=== PATIENT | male | born 1960 | race Caucasian/White ===

== ENCOUNTER 2017-08-29 01:31 | Inpatient (IN) | payer OTHER, MEDICARE ==
[~2017-08-29] VITALS: Ht 182.9 cm; Wt 148.8 kg
[~2017-08-29 01:31] MED LIST: AMLODIPINE BESYL5 M1 PO; KLONOPIN1 M1 PO; LOVENOX40 MG/0.1 SC; OXYCONTIN30 M1 PO; PANTOPRAZOLE SO40 M1 PO; PROPRANOLOL HCL40 M1 PO; VICTOZA 2-0.6 MG/0.1 SC; [UNRECOGNIZED DRUG - OTHER] PO
--- NOTE | 2017-08-29 14:03 | Admission Core Measures ---
Acute Coronary Syndrome (CM) ACS Core Measures Acute Coronary Syndrome Diagnosis No Congestive Heart Failure (NEW) CHF Core Measures Congestive Heart Failure Diagnosis No Cerebrovascular Accident (NEW) CVA Core Measures CVA/TIA Diagnosis No Venous Thromboembolism VTE Core Beverly (View Protocol) VTE Risk Factors Surgery No Mechanical VTE Prophylaxis d/t N/A MechProphylax Ordered No VTE Pharm Prophylaxis d/t NA PharmProphylax ordered Problem List As ranked by this Provider includes Assessment & Plan 1. Unilateral primary osteoarthritis, right hip HOME MEDS Home Med List Amlodipine Besylate 5 MG TABLET 1 TAB PO DAILY BP (Reported) Clonazepam (Klonopin) 1 MG TABLET 1 TAB PO DAILY UNKNOWN (Reported) Enoxaparin Sodium (Lovenox) 40 MG/0.4 ML SYRINGE 0.4 ML SC DAILY BLOOD THINNER (Reported) [GLZXAMBI] MG 1 TAB PO DAILY DIABETES (Reported) Liraglutide (Victoza 2-Gianni) 0.6 MG/0.1 ML (18 MG/3 ML) PEN.INJCTR 1.2 MG SC DAILY DIABETES (Reported) Oxycodone HCl (Oxycontin) 30 MG TAB.ER.12H 1 TAB PO TID PAIN (Reported) Pantoprazole Sodium 40 MG TABLET.DR 1 TAB PO BID REFLUX (Reported) Propranolol HCl 40 MG TABLET 1 TAB PO BID ESOPHOGEAL VARICES (Reported)
[2017-08-29] MEDS ORDERED: ELIQUIS5 M1 PO (14:08)
[2017-08-29] MEDS ORDERED: MS CONTIN30 M1 PO (14:08)
[2017-08-29] MEDS ORDERED: COLACE100 M1 PO (14:08)
[2017-08-29] MEDS ORDERED: MIRALAX17 G1 PO (14:08)
[2017-08-29] MEDS ORDERED: ELIQUIS2.5 M1 PO (14:08)
[2017-08-29] MEDS ORDERED: DILAUDID2 M1 PO (14:09)
--- NOTE | 2017-08-29 14:13 | Patient Discharge Instructions ---
Discharge Instructions General Discharge Information You were seen/treated for: Right hip pain related to unilateral primary osteoarthritis You had these procedures: Right total hip replacement Watch for these problems: Increasing pain despite the use of pain medication Increasing redness, warmth or swelling Drainage of any type from incision Inability to bear weight on operative leg Persistent nausea and vomiting Fever greater than 101.5 degrees Do not soak the wound: Yes No bath, but you may shower: Yes Other wound care: Please keep wound clean and dry. No ointments or lotions of any type on or near incision at any time. No exceptions. Your dressing will be changed by your nurse on the second day after your surgery. Daily dry dressing changes are recommended each day thereafter. Do not soak your wound in a bath at any time until otherwise indicated by your surgeon. You may shower, please dry wound immediately after shower with a clean towel. Special Instructions: Eliquis Please take 2.5 mg tablets twice a day for the first week after surgery. You have been given an rx for 14 tablets which will cover you for 7 days. After 7 days, increase your dosage to 5 mg twice a day. You will do that for 2 additional weeks. You have been given an rx for 28 tablets which will cover your for 14 days. 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 Diet Continue normal diet: Yes Recommended Diet: Diabetic Activity Full Activity/No Limits: No Activity Self Limited: Yes Pounds, do NOT lift more than: 10 Acute Coronary Syndrome Inclusion Criteria At DC or during hospital stay patient has or had the following: ACS DIAGNOSIS No Discharge Core Measures Meds if any: Prescribed or Continued at Discharge Meds if any: NOT Prescribed or Continued at Discharge Congestive Heart Failure Inclusion Criteria At DC or during hospital stay patient has or had the following: CHF DIAGNOSIS No Discharge Core Measures Meds if any: Prescribed or Continued at Discharge Meds if any: NOT Prescribed or Continued at Discharge Cerebrovascular accident Inclusion Criteria At DC or during hospital stay patient has or had the following: CVA/TIA Diagnosis No Discharge Core Measures Meds if any: Prescribed or Continued at Discharge Meds if any: NOT Prescribed or Continued at Discharge Venous thromboembolism Inclusion Criteria VTE Diagnosis No VTE Type NONE VTE Confirmed by (Test) NONE Discharge Core Measures - Per Current guidelines, there needs to be overlap - treatment for the first 5 days of Warfarin therapy. - If discharged on Warfarin prior to 5 days of - overlap therapy, the patient will need to be - assessed for post discharge needs including - *Post discharge parental anticoagulation - *Warfarin and/or parental anticoagulation education - *Follow up date to check INR post discharge At least 5 days overlap therapy as Inpatient No Meds if any: Prescribed or Continued at Discharge Note: Overlap Therapy is Warfarin and Anticoagulant Meds if any: NOT Prescribed or Continued at Discharge
--- NOTE | 2017-08-29 14:15 | Surgical Discharge Summary ---
Visit Information Visit Dates Admission Date: 08/29/17 Discharge Date: 09/01/2017 History of Present Illness Chief Complaint: Right hip pain related to unilateral primary osteoarthritis Medical History Isolation History: Standard Surgical History Pertinent Surgical History: non-contributory Review of Systems: See H&P Hospital Course Course Attending Physician: Jules Jones MD Primary Care Physician: Crispin Crabtree MD Hospital Course: Patient was admitted to the hospital for an elective total joint replacement. The procedure was tolerated well and patient was transferred to a general surgical floor. Diet was advanced and tolerated, and the patient voided spontaneously. The patient was evaluated and treated by physical therapy. At the time of hospital discharge, the vital signs were stable, neurovascular status was intact, and pain was controlled with the use of oral pain medications. It was noted that he had an ulcer on his buttock whcih was evaluated and did not look infected but was inflamed and appeared to be caused by pressure. He was placed on augmentin due to the possibility of infection and his recent hip surgery. He was instructed to keep pressure off of the buttock. No further dressings etc were deemed necessary. Allergies: Coded Allergies: No Known Allergies (08/26/17) Disposition Summary Disposition Principal Diagnosis: Right hip unilateral primary osteoarthritis Additional Diagnosis: None Discharge Disposition: home health services Discharge Instructions General Discharge Information Code Status: Full Code Patient's Diet: Diabetic, advance as tolerated Patient's Activity: WBAT Follow-Up Instructions/Appts: Follow up with Dr. Jones in 6 weeks from date of surgery. Please call his office to arrange and/or confirm this appointment. Medications at Discharge Discharge Medications: Stop taking the following medications: Oxycodone HCl (Oxycontin) 30 MG TAB.ER.12H ORAL THREE TIMES DAILY Enoxaparin Sodium (Lovenox) 40 MG/0.4 ML SYRINGE Inject into fatty tissue DAILY Continue taking these medications: Amlodipine Besylate (Amlodipine Besylate) 5 MG TABLET 1 Tablet ORAL DAILY Comments: Last Taken: 09/01/17 Time: 1054AM Pantoprazole Sodium (Pantoprazole Sodium) 40 MG TABLET.DR 1 Tablet ORAL TWICE DAILY Comments: PRILOSEC GIVEN IN HOSPITAL Last Taken: 09/01/17 Time: 0711AM Propranolol HCl (Propranolol HCl) 40 MG TABLET 1 Tablet ORAL TWICE DAILY Comments: Last Taken: 09/01/17 Time: 1054 Clonazepam (Klonopin) 1 MG TABLET 1 Tablet ORAL DAILY Comments: Last Taken: 09/01/17 Time: 1102AM [GLZXAMBI] MG 1 Tablet ORAL DAILY Instructions: DOSE PER PT IS 10/5MG Comments: NOT GIVEN IN HOSPITAL Liraglutide (Victoza 2-Gianni) 0.6 MG/0.1 ML (18 MG/3 ML) PEN.INJCTR 1.2 Milligram Inject into fatty tissue DAILY Comments: NOT GIVEN IN HOSPITAL Start taking the following new medications: Hydromorphone HCl (Dilaudid) 2 MG TABLET 2-4 Tablet ORAL EVERY 4-6 HOURS NEEDED as needed for PAIN Qty = 36 No Refills Comments: Last Taken: 09/01/17 Time: 1102AM Apixaban (Eliquis) 2.5 MG TABLET 1 Tablet ORAL TWICE DAILY Qty = 14 No Refills Instructions: TAKE ONLY 2.5 MG TWICE DAILY FOR 7 DAYS BEGINNING THE FIRST DAY AFTER YOUR SURGERY Comments: Last Taken: 09/01/17 Time: 1104AM Apixaban (Eliquis) 5 MG TABLET 1 Tablet ORAL TWICE DAILY Qty = 28 No Refills Instructions: BEGIN THIS DOSE AFTER YOU COMPLETE YOUR ONE WEEK COURSE OF 2.5 MG TWICE A DAY Docusate Sodium (Colace) 100 MG CAPSULE 1 Capsule ORAL TWICE DAILY Qty = 14 No Refills Instructions: DISCONTINUE USE IF YOU DEVELOP LOOSE STOOL OR DIARRHEA Comments: Last Taken: 09/01/17 Time: 1054AM Polyethylene Glycol 3350 (Miralax) 17 GRAM POWD.PACK 1 Packet ORAL DAILY Qty = 7 No Refills Instructions: dissolve in water, DISCONTINUE USE IF YOU DEVELOP LOOSE STOOL OR DIARRHEA Comments: Last Taken: 09/01/17 Time: 1054AM Morphine Sulfate (Ms Contin) 30 MG TABLET.ER 1 Tablet ORAL TWICE DAILY Qty = 6 No Refills Comments: Last Taken: 09/01/17 Time: 1102AM Amoxicillin/Potassium Clav (Augmentin 875-125 Tablet) 875 MG-125 MG TABLET 1 Tablet ORAL TWICE DAILY Qty = 20 No Refills Comments: NOT GIVEN IN HOSPITAL
--- NOTE | 2017-08-29 15:28 | RADIOLOGY REPORT ---
EXAMINATION: XR HIP, RIGHT CLINICAL INFORMATION: Status post hip replacement. COMPARISON: None TECHNIQUE: Two views of the right hip. FINDINGS: Surgical drain in the soft tissue. Surgical skin clips over the right lateral soft tissues of the hip. The orthopedic components of the total right hip replacement in position. No fracture and no dislocation. IMPRESSION: Status post right hip replacement.
--- NOTE | 2017-08-29 15:53 | Operative Report ---
Operative/Inv Procedure Report Surgery Date: 08/29/17 Name of Procedure: Right total hip replacement Pre-Operative Diagnosis: Primary right hip DJD Post-Operative Diagnosis: Same Estimated Blood Loss: 500 Surgeon/System Programmer: Karen HUBER,Jules García Anesthesia: general endotracheal tube Operative/Procedure Note Note: Description of Procedure: The patient was taken to the operating room and positively identified. After induction of general anesthesia and administration of appropriate pre-operative antibiotics, the patient was positioned supine on the operating room table and all bony prominences were well padded. After performing a surgical timeout, the right lower extremity was prepped and draped in the usual sterile fashion. A direct anterior approach was made to the right hip. The incision was carried sharply through superficial soft tissues to the level of the fascia. Meticulous hemostasis was maintained with Bovie electocautery. The fascia over the tensor fascia shawnee muscle was opened sharply and the interval between the TFL and the sartorius was entered bluntly taking care to stay lateral to the lateral femoral cutaneous nerve. Retractors were placed around the femoral neck and the pericapsular fat was identified. The ascending branches of the lateral femoral circumflex vessels were identified and carefully coagulated. The pericapsular fat and anterior capsule were then resected. A napkin ring osteotomy was performed and the femoral head was removed without difficulty. Attention was then turned to the acetabulum. After appropriate placement of retractors, the acetabulum was exposed. Soft tissue was cleaned from the acetabular margin and notch. Overhanging osteophytes were removed and the teardrop was exposed. The acetabulum was then sequentially reamed to accept a 62 mm Minerva Tritanium hemispherical cluster shell. This was impacted into place in the appropriate position. 2 screws were used for supplemental fixation. The cup was then fit with a 36 mm Trident X3 zero degree polyethylene insert. Attention was then turned to the femur. After performing the appropriate ligament releases, the proximal femur was exposed. It was then sequentially broached to accept a size 8 Minerva Accolade II stem. This was trialed for leg length and stability. The trial component was removed and the final component was impacted into place. The trunnion was carefully cleaned and fit with a 36 mm, +2.5 Biolox delta ceramic femoral head. The hip was reduced and put through a full range of motion and found to be stable. The articular space was then irrigated with sterile saline. The periarticular soft tissues were infilitrated with Marcaine. The fascial layer was closed with interrupted #1 vicryl suture and the skin was re-approximated with interrupted 2 -0 vicryl. The skin was closed with a running 3-0 V-Lock suture. Steri-strips and a sterile dressing were applied. The patient was awakened and taken to the recovery room in satisfactory condition.
--- NOTE | 2017-08-29 17:46 | PN- Orthopedic ---
Subjective Subjective: POSTOP CHECK just arrived to floor from pacu. sleepy. hamm placed in pacu for retention. denies pain. no n/v/cp/sob. no oob. no po intake yet Objective Vital Signs and I&Os SEE EMR Physical Exam: gen- nad card-s1s2 rrr pulm-ctab abd- obese soft nt ext- R hip dressed-cdi, nontender. calves soft nt bl, alps on. +dorsi/ plantarflexion bl. feet warm, palp dp. gross sensation intact bl Assessment/Plan Assessment/Plan A- POD0 sp R BARBARA with urinary retention in pacu, hamm placed, otherwise stable P- hamm in place, dc in am prn pain meds home meds ada diet as tolerated fs, riss home meds eliquis 2.5 bid wbat, ot, ambulate dc planning Core Measures Venous Thromboembolism VTE Risk Factors Surgery No Mechanical VTE Prophylaxis d/t N/A MechProphylax Ordered No VTE Pharm Prophylaxis d/t NA PharmProphylax ordered
[2017-08-29 18:07] VITALS: BP 132/90
[2017-08-29 22:37] VITALS: BP 128/60
[2017-08-30] VITALS (7 sets, daily range): BP systolic 110–122; BP diastolic 58–60
[2017-08-30 08:05] LABS: ABSOLUTE BASOPHIL COUNT 0 /CUMM (0.0-0.2); ABSOLUTE EOSINOPHIL COUNT 0.1 /CUMM (0.0-0.7); ABSOLUTE GRANULOCYTE CT 5.4 /CUMM (1.4-6.5); ABSOLUTE LYMPH COUNT 0.7 /CUMM (1.2-3.4); ABSOLUTE MONOCYTE COUNT 0.4 /CUMM (0.10-0.60); BASOPHIL % 0.1 % (0.0-2.0); EOSINOPHIL % 1.2 % (0-5); GRANULOCYTE % 83.1 % (42.2-75.2); HEMATOCRIT 30.9 % (42-52); MEAN CORPUSCULAR HGB 31.1 PG (27.0-31.0); MEAN CORPUSCULAR HGB CONC 34.6 G/DL (33.0-37.0); MEAN CORPUSCULAR VOLUME 89.8 FL (80.0-94.0); MEAN PLATELET VOLUME 9.5 FL (7.4-10.4); RBC DISTRIBUTION WIDTH 14.5 % (11.5-14.5); RED BLOOD CELL CT 3.44 /CUMM (4.70-6.10)
[2017-08-30 09:40] LABS: WHITE BLOOD CELL COUNT 6.5 /CUMM (4.8-10.8)
[2017-08-30 09:41] LABS: PLATELET COUNT 70 /CUMM (130-400)
--- NOTE | 2017-08-30 09:44 | PN- Orthopedic ---
Subjective Subjective: No acute overnight events reported. Pain control an issue. Denies chest pain, shortness of breath and difficulty breathing. Denies nausea and vomitting. Has yet to ambulate. Carvajal catheter dc'd this am. Objective Vital Signs and I&Os Vital Signs Date Time Temp Pulse Resp B/P B/P Pulse O2 O2 Flow FiO2 Mean Ox Delivery Rate 03/ 0902 95 112/60 03/ 0902 95 112/60 03/06 0557 99.1 97 20 120/60 92 Room Air / 0200 99.7 100 20 116/60 93 CPAP 03/ 0000 CPAP 03/ 0000 98.4 82 20 110/60 94 CPAP / 2237 97.6 96 19 128/60 96 Room Air / 2131 96 128/60 03/05 1807 97.8 78 20 132/90 100 Nasal 2.0L Cannula Intake & Output 08/30 1600 / 0800 03/06 0000 03/ 1600 / 0800 03/ 0000 Intake Total 1370 585 Output Total 750 Balance 620 585 Intake, IV 650 345 Intake, Oral 720 240 Number 0 0 Bowel Movements Output, 300 Drainage Output, Urine 450 Patient 323 lb 310 lb Weight Weight Bed scale Reported by Patient Measurement Method Physical Exam: General: Alert and oriented x3, no acute distress Cardiac: RRR, s1s2 Pulm: CTA bilaterally ABD: non-tender, non-distended Extremities: Moves all extremities, distal sensation grossly intact. Skin warm and well perfused. DP pulses palpable bialterally. Bialteral calves soft and non-tender. Surgical site: Right hip: Dressing dry and intact. Sanguinous drainage in hemovac. Thigh compartment soft. Assessment/Plan Assessment/Plan This is a 56 year old male with multiple comorbidities including: Diabetes, hypertension, portal hypertension, cirrhosis, thrombocytopenia, esophageal varicies, and morbid obesity. He is POD 1 s/p R THR -MS Contin 30 to be given today -DC iv fluids -OOB, wbat -Drain, will pull this afternoon -Eliquis to start today: 2.5 bid x1 week, the 5.0 bid x2 weeks, then follow up with children counselor regarding further treatment -Diet as tolerated -Bowel regimen to include colace and miralax Will discuss plan of care with Dr Jones Core Measures Venous Thromboembolism VTE Risk Factors Surgery No Mechanical VTE Prophylaxis d/t N/A MechProphylax Ordered No VTE Pharm Prophylaxis d/t NA PharmProphylax ordered
[2017-08-31 06:26] VITALS: BP 120/68
--- NOTE | 2017-08-31 07:01 | PN- Orthopedic ---
Subjective Subjective: POD#2 S/P RIGHT BARBARA NO MAJOR ISSUES OVERNIGHT DENEIS CP,SOB,NO N+V WITH DIET SLOW WITH PT PAIN CONTROLLED PO PAIN MEDS CONCERNED ABOUT GOING HOME BECASUE OF MANY STAIRS AT HOME Objective Vital Signs and I&Os Vital Signs Date Time Temp Pulse Resp B/P B/P Pulse O2 O2 Flow FiO2 Mean Ox Delivery Rate / 0626 98.7 81 20 120/68 93 Room Air 03/ 2154 99.2 85 18 110/60 95 Room Air 03/06 2109 85 110/60 03/06 1830 98.1 85 18 118/60 94 Room Air 03/ 1513 98.9 85 20 122/60 93 Room Air 03/06 0957 97.7 92 16 122/58 98 Room Air 03/06 0902 95 112/60 03/06 0902 95 112/60 Intake & Output 03/07 0800 03/07 0000 03/06 1600 03/06 0800 03/06 0000 03/05 1600 Intake Total 520 494 1578 585 Output Total 425 600 600 750 Balance -425 370 25 620 585 Intake, IV 20 75 650 345 Intake, Oral 950 550 720 240 Number 0 0 0 Bowel Movements Output, 100 250 300 Drainage Output, Urine 425 500 350 450 Patient 324 lb 323 lb 310 lb Weight Weight Bed scale Reported by Patient Measurement Method Physical Exam: CV: RRR LUNGS: CLEAR ABD: SOFT, +BS EXT: DRSG CHANGED, WOUND C/D/I NO CALF TENDERNESS BILAT DISTAL CMS INTACT Assessment/Plan Assessment/Plan ORTHO STABLE STILL NEEDS TO DO STAIRS WITH PT PLAN ELIQUIS FOR DVT PROPHYLAXIS CONT OOB WITH PT TITRATE PAIN MEDS HOME V. STR - WILL DISCUSS W/PT&CM Core Measures Venous Thromboembolism VTE Risk Factors Surgery No Mechanical VTE Prophylaxis d/t N/A MechProphylax Ordered No VTE Pharm Prophylaxis d/t NA PharmProphylax ordered
[2017-08-31 14:18] VITALS: BP 124/52
[2017-08-31 22:03] VITALS: BP 112/70
[2017-09-01 07:01] VITALS: BP 120/60
[2017-09-01] MEDS ORDERED: AUGMENTIN 875-1 EACH PO (10:40)
--- NOTE | 2017-09-01 10:41 | PN- Orthopedic ---
Subjective Subjective: Patient feeling better today, his pain is well controlled, he has been up and ambulatory and is cleared physical therapy. He denies any fever or flulike illness. He states he feels comfortable being discharged home, he has family that it will help take care of him and his fingers has been arranged. Patient also has a trace amount of thin bloody draining from his left lower medial buttock region. He states that he has history of abscess in this area that are recurrent. One has recently healed. He denies any trauma to the area. He thinks it is from sitting for too long on it after surgery. He has no pain or purulent discharge from it. Objective Vital Signs and I&Os Vital Signs Date Time Temp Pulse Resp B/P B/P Pulse O2 O2 Flow FiO2 Mean Ox Delivery Rate 09/01 1226 98.1 69 20 116/70 93 Room Air 09/01 1055 76 124/64 09/01 1054 76 114/64 09/01 0701 98.3 74 20 120/60 97 03/08 0000 CPAP 08/31 2210 80 112/70 08/31 2203 98.3 80 19 112/70 93 Room Air Intake & Output 09/01 1600 08 0800 /08 0000 / 1600 08/31 0800 / 0000 Intake Total 720 680 720 680 970 Output Total 425 650 750 700 625 600 Balance 295 30 -750 20 55 370 Intake, IV 20 Intake, Oral 720 680 720 680 950 Output, 100 Drainage Output, Urine 425 650 750 700 625 500 Patient 328 lb 324 lb Weight Physical Exam: Well-developed well-nourished no apparent distress. HEENT: Atraumatic, extraocular motion intact Neck: Supple, no lymphadenopathy Respiratory: No respiratory distress Extremities: No edema RIGHT lower extremity hip dressing in place, Dressing has mild amount of serosanguineous drainage at the proximal incision site and at the revealed drain site which has healed. Dry sterile dressing was applied Incision without erythema Mild thigh swelling No signs of infection. No shortening or rotation Hip range of motion is limited and without unexpected pain Neurovascularly intact distally Bilateral calves are supple, nontender. Neuro: Alert and oriented x3 Psych: Mood affect normal, normal memory normal judgment. Skin: Warm and dry, no rash on exposed skin Patient's left buttock region with a 1 x 1 cm area of slightly opened scab and what appears to be previous abscess site. There is trace thin serous blood noted on the pad which she is sitting. There is no active bleeding. There is no tenderness, swelling, induration, erythema, discharge or pain with palpation of the area. There does not appear to be any tracking. There is multiple scarring of bilateral gluteal regions secondary to previous abscesses Assessment/Plan Assessment/Plan Postop day #3 status post right total arthroplasty anterior approach. Pain medication as needed. Out of bed Physical therapy, weightbearing as tolerated Regular diet Daily dressing change [facility] services Eliquis 2.5 mg twice a day for DVT prophylaxis for 1 week and then switch to 5 mg twice a day. Continue pain regimen Right buttock wound is superficial and from old scarring, no active infection however given his history of previous infections and recent total joint replacement, he will be placed on Augmentin, 875 twice a day 10 days. He is asked to try to stay off this and watch for any signs of infection which were discussed with him. Patient is stable for discharge home today discussed with Dr. Jones Core Measures Venous Thromboembolism VTE Risk Factors Surgery No Mechanical VTE Prophylaxis d/t N/A MechProphylax Ordered No VTE Pharm Prophylaxis d/t NA PharmProphylax ordered
[2017-09-01] MEDS ORDERED: DILAUDID2 M1 PO (11:15)
[2017-09-01 12:26] VITALS: BP 116/70
== END 2017-09-01 13:45 | disposition home health service (06) | DRG 470 ==
LOC: SDA 01:31 → ENRESERV 16:42 → ENTRNSPT 17:24 → 2NB 17:42 → CMPTRNSPT 18:11 → ENPENDDIS 09-01 13:33 → ENTRNSPT 09-01 13:33 → EDTRNSPTSTS 09-01 13:36 → 2NB 09-01 13:45 → CMPTRNSPT 09-01 14:10
PROVIDERS: Nurse Practitioner
PROC: 0SR904Z Replacement of Right Hip Joint with Ceramic on Polyethylene Synthetic Substitute, Open Approach (ICD-10-PCS; principal; 2017-08-29)
DX: M16.11 Unilateral primary osteoarthritis, right hip (principal); L89.309 Pressure ulcer of unspecified buttock, unspecified stage; D69.6 Thrombocytopenia, unspecified; I85.10 Secondary esophageal varices without bleeding; E66.01 Morbid (severe) obesity due to excess calories; I82.91 Chronic embolism and thrombosis of unspecified vein; Z68.41 Body mass index [BMI] 40.0-44.9, adult; K76.6 Portal hypertension; K75.81 Nonalcoholic steatohepatitis (NASH); E11.9 Type 2 diabetes mellitus without complications; F17.210 Nicotine dependence, cigarettes, uncomplicated; E55.9 Vitamin D deficiency, unspecified; M47.9 Spondylosis, unspecified; G47.39 Other sleep apnea
CPT/HCPCS: 2NBSP; 36592; 73502-RT; 82436; 87086; 88304; 97110-GO; 97116-GO; 97161-GP; 97530-GO; C9399; J0690; J0735; J1815; J1885; J2550; J3490

== ENCOUNTER 2017-09-23 03:21 | Inpatient (IN) | payer OTHER, MEDICARE ==
[~2017-09-23] VITALS: Ht 182.9 cm; Wt 147.0 kg
[~2017-09-23 03:21] MED LIST changes: +AUGMENTIN 875-1 EACH PO; +COLACE100 M1 PO; +DILAUDID2 M1 PO; +ELIQUIS2.5 M1 PO; +ELIQUIS5 M1 PO; +MIRALAX17 G1 PO; +MS CONTIN30 M1 PO
[2017-09-23 11:00] VITALS: BP 140/80
--- NOTE | 2017-09-23 11:23 | History & Physical Pre-Op ---
General Information and HPI Source of Information: patient, family Exam Limitations: no limitations History of Present Illness: 56 y/o male was admitted to the floor with right hip pain, drainage and pain. Patient is S/P right anterior BARBARA 08/29/2017. Over the last few days he has noticed increasing pain with redness over the hip area. He was seen by Dr. Valdivia and aspiration of the hip was preformed in the office. He denies fevers , or flu-like illness. He is a diabetic and his glucose levels have been controlled. Allergies/Medications Allergies: Coded Allergies: No Known Allergies (08/26/17) Home Med list Amlodipine Besylate 5 MG TABLET 1 TAB PO DAILY BP (Reported) Amoxicillin/Potassium Clav (Augmentin 875-125 Tablet) 875 MG-125 MG TABLET 1 TAB PO BID BUTTOCK WOUND Apixaban (Eliquis) 2.5 MG TABLET 1 TAB PO BID anticoagulation TAKE ONLY 2.5 MG TWICE DAILY FOR 7 DAYS BEGINNING THE FIRST DAY AFTER YOUR SURGERY Apixaban (Eliquis) 5 MG TABLET 1 TAB PO BID ANTICOAGULATION BEGIN THIS DOSE AFTER YOU COMPLETE YOUR ONE WEEK COURSE OF 2.5 MG TWICE A DAY Clonazepam (Klonopin) 1 MG TABLET 1 TAB PO DAILY UNKNOWN (Reported) Docusate Sodium (Colace) 100 MG CAPSULE 1 CAP PO BID CONSITPATION DISCONTINUE USE IF YOU DEVELOP LOOSE STOOL OR DIARRHEA [GLZXAMBI] MG 1 TAB PO DAILY DIABETES (Reported) DOSE PER PT IS 10/5MG Hydromorphone HCl (Dilaudid) 2 MG TABLET 2-4 TAB PO Q4-6 PRN PRN PAIN Liraglutide (Victoza 2-Gianni) 0.6 MG/0.1 ML (18 MG/3 ML) PEN.INJCTR 1.2 MG SC DAILY DIABETES (Reported) Morphine Sulfate (Ms Contin) 30 MG TABLET.ER 1 TAB PO BID PAIN Pantoprazole Sodium 40 MG TABLET.DR 1 TAB PO BID REFLUX (Reported) Polyethylene Glycol 3350 (Miralax) 17 GRAM POWD.PACK 1 PAC PO DAILY CONSTIPATION dissolve in water, DISCONTINUE USE IF YOU DEVELOP LOOSE STOOL OR DIARRHEA Propranolol HCl 40 MG TABLET 1 TAB PO BID ESOPHOGEAL VARICES (Reported) Past History Medical History Neurological: NONE EENT: NONE Cardiovascular: hypertension Respiratory: obstructive sleep apnea Gastrointestinal: GERD Hepatic: cirrhosis Renal: NONE Musculoskeletal: chronic back pain, osteoarthritis Psychiatric: anxiety Endocrine: diabetes Blood Disorders: CHRONIC LOW PLATELETS Cancer(s): NONE History of MRSA: No History of VRE: No History of CDIFF: No Surgical History Pertinent Surgical History: non-contributory Past Family/Social History Psychosocial History Who Do You Live With? spouse Smoking Status: Current Some Day Smoker ETOH Use: denies use Illicit Drug Use: denies illicit drug use Review of Systems Review of Systems Constitutional: Denies: chills, fever, weakness. EENTM: Denies: no symptoms. Cardiovascular: Denies: chest pain, edema, peripheral edema. Respiratory: Denies: no symptoms. GI: Denies: abdominal pain, distention. Genitourinary: Denies: no symptoms. Musculoskeletal: Reports: joint pain, joint swelling, muscle pain. Skin: Reports: see HPI. Exam & Diagnostic Data Physical Exam: Patient is A+O x 3 comfortable VSS HEENT -WNL Heart -RRR without MRG Abdomen -rounded, NT, +BS chest - CTA, SYmmetric right hip - right hip with moderate edema and erythema wound closed, moderate hip tenderness calves soft bilaterally and distal pulses intact Assessment/Plan Assessment/Plan: 56 y/o male S/P right BARBARA 08/29/2017 with right hip cellulitis and infection Plan - preoperative labs pending surgical consent NPO after midnight -pending OR in am I+D right hip As Ranked By This Provider Problem List: 1. Unilateral primary osteoarthritis, right hip
[2017-09-23 15:09] LABS: ABSOLUTE BASOPHIL COUNT 0 /CUMM (0.0-0.2); ABSOLUTE EOSINOPHIL COUNT 0 /CUMM (0.0-0.7); ABSOLUTE LYMPH COUNT 0.3 /CUMM (1.2-3.4); ABSOLUTE MONOCYTE COUNT 0.2 /CUMM (0.10-0.60); MEAN CORPUSCULAR VOLUME 87.8 FL (80.0-94.0); MEAN PLATELET VOLUME 10.5 FL (7.4-10.4); WHITE BLOOD CELL COUNT 2.5 /CUMM (4.8-10.8)
[2017-09-23 15:14] LABS: PT 16.6 SEC (9.4-12.5)
[2017-09-23 15:15] LABS: BASOPHIL % 0.3 % (0.0-2.0); EOSINOPHIL % 1.4 % (0-5); GRANULOCYTE % 78.9 % (42.2-75.2); HEMATOCRIT 28.6 % (42-52); MEAN CORPUSCULAR HGB 29.3 PG (27.0-31.0); MEAN CORPUSCULAR HGB CONC 33.3 G/DL (33.0-37.0); RBC DISTRIBUTION WIDTH 14.7 % (11.5-14.5); RED BLOOD CELL CT 3.26 /CUMM (4.70-6.10)
[2017-09-23 15:17] LABS: PLATELET COUNT 54 /CUMM (130-400)
--- NOTE | 2017-09-23 19:27 | Admission Core Measures ---
Acute Coronary Syndrome (CM) ACS Core Measures Acute Coronary Syndrome Diagnosis No Congestive Heart Failure (NEW) CHF Core Measures Congestive Heart Failure Diagnosis No Cerebrovascular Accident (NEW) CVA Core Measures CVA/TIA Diagnosis No Venous Thromboembolism VTE Core [place] (View Protocol) VTE Risk Factors Surgery No Mechanical VTE Prophylaxis d/t N/A MechProphylax Ordered No VTE Pharm Prophylaxis d/t NA PharmProphylax ordered Problem List As ranked by this Provider includes Assessment & Plan 1. History of arthroplasty of right hip HOME MEDS Home Med List Amlodipine Besylate 5 MG TABLET 1 TAB PO DAILY BP (Reported) Amoxicillin/Potassium Clav (Augmentin 875-125 Tablet) 875 MG-125 MG TABLET 1 TAB PO BID BUTTOCK WOUND Apixaban (Eliquis) 2.5 MG TABLET 1 TAB PO BID anticoagulation Apixaban (Eliquis) 5 MG TABLET 1 TAB PO BID ANTICOAGULATION Clonazepam (Klonopin) 1 MG TABLET 1 TAB PO DAILY UNKNOWN (Reported) Docusate Sodium (Colace) 100 MG CAPSULE 1 CAP PO BID CONSITPATION [GLZXAMBI] MG 1 TAB PO DAILY DIABETES (Reported) Hydromorphone HCl (Dilaudid) 2 MG TABLET 2-4 TAB PO Q4-6 PRN PRN PAIN Liraglutide (Victoza 2-Gianni) 0.6 MG/0.1 ML (18 MG/3 ML) PEN.INJCTR 1.2 MG SC DAILY DIABETES (Reported) Morphine Sulfate (Ms Contin) 30 MG TABLET.ER 1 TAB PO BID PAIN Pantoprazole Sodium 40 MG TABLET.DR 1 TAB PO BID REFLUX (Reported) Polyethylene Glycol 3350 (Miralax) 17 GRAM POWD.PACK 1 PAC PO DAILY CONSTIPATION Propranolol HCl 40 MG TABLET 1 TAB PO BID ESOPHOGEAL VARICES (Reported)
[2017-09-23 22:35] VITALS: BP 122/80
[2017-09-24 07:02] VITALS: BP 128/58
--- NOTE | 2017-09-24 15:06 | Operative Report ---
Operative/Inv Procedure Report Surgery Date: 09/24/17 Name of Procedure: Right hip superficial non-excisional irrigation and debridement Pre-Operative Diagnosis: Right hip wound infection Post-Operative Diagnosis: Same Estimated Blood Loss: 200 Surgeon/Primary Operator: Jules Jones MD Anesthesia: laryngeal mask airway Operative/Procedure Note Note: The patient was taken to the operating room and positively identified. Preoperative antibiotics were not administered. The right hip was prepped and draped in the usual sterile fashion. The incision was opened over its full length. Superficial purulent material was encountered. This was cultured. The necrotic tissue did not extend below 1 cm in depth. No abscess cavities were encountered. There was no evidence of joint fluid dressing from deeper layers. The superficial soft tissue was debrided with curettes and a rongeur. It was then irrigated with a liter of sterile saline. The wound bed was treated with topical TXA. A gram of vancomycin powder was left in the wound bed itself. A # 10 flat Gabo-Tan drain was also left superficially. The wound edges were reapproximated with #2 nylon sutures in a vertical mattress fashion. The wound edges were closed with #2 Vicryl in a subcuticular fashion and the final closure was carried out with mary. Sterile dressings were applied and the patient was awakened. Beckum Petar was administered IV prior to him leaving the operating room.
[2017-09-24 16:27] VITALS: BP 138/76
--- NOTE | 2017-09-24 17:13 | PN- Orthopedic ---
Subjective Subjective: Postop check Patient reports postop pain and burning sensation, currently controlled with analgesics. He reports voiding. Denies ambulating with PT yet. Offers no other complaints. Objective Vital Signs and I&Os Vital Signs Date Time Temp Pulse Resp B/P B/P Pulse O2 O2 Flow FiO2 Mean Ox Delivery Rate 09/24 1627 98.1 67 20 138/76 94 Room Air 09/24 0909 73 128/58 09/24 0908 73 128/58 09/24 0702 98.8 73 20 128/58 97 Room Air 09/23 2235 98.3 79 21 122/80 97 Room Air 09/23 2124 98.3 79 20 122/80 Intake & Output 09/24 1600 09/24 0800 09/24 0000 09/23 1600 09/23 0800 09/23 0000 Intake Total 1060 1000 600 400 Output Total 850 625 450 Balance 210 375 150 400 Intake, IV 1000 1000 100 Intake, Oral 60 0 500 400 Number 1 1 1 Bowel Movements Output, Urine 850 625 450 Patient 309 lb 315 lb Weight Weight Reported by Patient Measurement Method Physical Exam: Gen - resting comfortably accompained by his family in nad Cardiac - S1S2 noted Lungs - CTAB Ext - R hip dressing c/d/i, malachi drain in place with 25 cc serosanguineous drainage, appropriately tender, soft compartment, motor and sensory intact, no significant edema or calf tenderness Current Medications: Current Medications Sig/Chel Start time Last Medication Dose Route Stop Time Status Admin Acetaminophen 650 MG Q4P PRN 09/24 1615 AC PO Acetaminophen 1,000 MG Q6H 09/23 1615 DC 09/24 N/A 1 UNIT IV 09/24 1029 0909 Amlodipine Besylate 5 MG DAILY 09/24 1000 AC 09/24 PO 0909 Clonazepam 1 MG BID PRN 09/23 1115 AC PO 09/30 1114 Diazepam 5 MG TID PRN 09/23 1615 AC 09/23 PO 1618 Diphenhydramine HCl 50 MG Q4-6 PRN PRN 09/23 1500 AC IV Docusate Sodium 100 MG BID 09/23 1410 AC 09/24 PO 0908 Furosemide 40 MG DAILY 09/24 1000 AC 09/24 PO 0908 Hydromorphone HCl 4 MG Q4P PRN 09/24 1700 UNVr PO Hydromorphone HCl 2 MG Q4-6 PRN PRN 09/24 1600 AC 09/24 PO 1643 Hydromorphone HCl 2 MG Q4P PRN 09/24 1600 DC PO Insulin Aspart 0 TIDAC 09/24 1700 UNVr SC Insulin Human Regular 0 TIDAC/HS 09/24 1700 CAN SC Insulin Human Regular 0 Q6 09/23 2359 DC 09/24 SC 1155 Insulin Human Regular 0 TIDAC/HS 09/23 1200 DC 09/23 SC 1717 Lactated Ringer's 1,000 ML Q13H 09/24 1615 AC IV Lactated Ringer's 1,000 ML Q8H 09/24 0000 DC 09/24 IV 0716 Morphine Sulfate 2 MG Q2 PRN 09/24 1601 AC IV Morphine Sulfate 4 MG Q4P PRN 09/23 1115 DC 09/24 IV 0716 Nicotine 14 MG DAILY 09/23 1115 AC 09/24 TOP 0909 Omeprazole 40 MG BID 09/23 2200 AC 09/24 PO 0909 Oxycodone HCl 30 MG Q12 PRN 09/23 1115 DC 09/24 PO 1156 Propranolol HCl 40 MG BID 09/23 2200 AC 09/24 PO 0908 Senna 187 MG AT BEDTIME 09/23 2200 AC 09/23 PO 2124 Vancomycin HCl 2,000 MG Q12H 09/25 0600 AC Sodium Chloride 500 ML IV Vancomycin HCl 1,000 MG ONE ONE 09/24 1800 AC Dextrose/Water 250 ML IV 09/24 1859 Results Last 48 Hours of Labs: Laboratory Tests 09/23 1345 Chemistry Sodium (137 - 145 mmol/L) 137 Potassium (3.5 - 5.1 mmol/L) 3.8 Chloride (98 - 107 mmol/L) 101 Carbon Dioxide (22 - 30 mmol/L) 26 Anion Gap (5 - 16) 11 BUN (9 - 20 mg/dL) 16 Creatinine (0.7 - 1.2 mg/dL) 0.7 Estimated GFR (>60 ml/min) > 60 BUN/Creatinine Ratio (7 - 25 %) 22.9 C-Reactive Prot, Quant (<1.0 mg/dL) 8.5 H C-React Prot High Sens (1.0 - 3.0 mg/L) > 15.0 H Coagulation PT (9.4 - 12.5 SEC) 16.6 H INR (0.90 - 1.17) 1.52 H Hematology CBC w Diff NO MAN DIFF REQ WBC (4.8 - 10.8 /CUMM) 2.5 L RBC (4.70 - 6.10 /CUMM) 3.26 L Hgb (14.0 - 18.0 G/DL) 9.6 L Hct (42 - 52 %) 28.6 L MCV (80.0 - 94.0 FL) 87.8 MCH (27.0 - 31.0 PG) 29.3 MCHC (33.0 - 37.0 G/DL) 33.3 RDW (11.5 - 14.5 %) 14.7 H Plt Count (130 - 400 /CUMM) 54 L MPV (7.4 - 10.4 FL) 10.5 H Gran % (42.2 - 75.2 %) 78.9 H Lymphocytes % (20.5 - 51.1 %) 12.8 L Monocytes % (1.7 - 9.3 %) 6.6 Eosinophils % (0 - 5 %) 1.4 Basophils % (0.0 - 2.0 %) 0.3 Absolute Granulocytes (1.4 - 6.5 /CUMM) 2.0 Absolute Lymphocytes (1.2 - 3.4 /CUMM) 0.3 L Absolute Monocytes (0.10 - 0.60 /CUMM) 0.2 Absolute Eosinophils (0.0 - 0.7 /CUMM) 0 Absolute Basophils (0.0 - 0.2 /CUMM) 0 Assessment/Plan Assessment/Plan 56 M s/p R THR on 08/29/17 admitted with right hip wound infection s/p right hip superficial non-excisional irrigation and debridement Advance to diabetic diet, IVF IV Vanco 2G bid until cx are finalized Pain regimen prn Keep MALACHI to bulb suction PT eval tomorrow, WBAT DVT ppx - alps, ambulation Home meds on board ISS, fingersticks q6 tidac/hs Bowel regimen on board F/u OR cultures Dressing change POD2 D/w Dr. Jones Core Measures Venous Thromboembolism VTE Risk Factors Surgery No Mechanical VTE Prophylaxis d/t N/A MechProphylax Ordered No VTE Pharm Prophylaxis d/t NA PharmProphylax ordered
[2017-09-24 21:39] VITALS: BP 120/60
[2017-09-25 06:33] VITALS: BP 128/76
[2017-09-25 09:31] LABS: ABSOLUTE BASOPHIL COUNT 0 /CUMM (0.0-0.2); ABSOLUTE EOSINOPHIL COUNT 0 /CUMM (0.0-0.7); ABSOLUTE GRANULOCYTE CT 1.3 /CUMM (1.4-6.5); ABSOLUTE LYMPH COUNT 0.4 /CUMM (1.2-3.4); ABSOLUTE MONOCYTE COUNT 0.1 /CUMM (0.10-0.60); BASOPHIL % 0.2 % (0.0-2.0); EOSINOPHIL % 2.3 % (0-5); GRANULOCYTE % 69.3 % (42.2-75.2); HEMATOCRIT 25.6 % (42-52); MEAN CORPUSCULAR HGB 29.4 PG (27.0-31.0); MEAN CORPUSCULAR HGB CONC 33.5 G/DL (33.0-37.0); MEAN CORPUSCULAR VOLUME 87.8 FL (80.0-94.0); MEAN PLATELET VOLUME 10.3 FL (7.4-10.4); RBC DISTRIBUTION WIDTH 14.7 % (11.5-14.5); RED BLOOD CELL CT 2.92 /CUMM (4.70-6.10); WHITE BLOOD CELL COUNT 1.8 /CUMM (4.8-10.8)
--- NOTE | 2017-09-25 09:54 | PN- Orthopedic ---
Subjective Subjective: No acute overnight events reported post operatively. Pain poorly controlled presently, minimal response to dilaudid. No complaints of chest pain, shortness of breath and difficulty breathing. No complaints of nausea and vomitting. Voiding. Wants to get oob. Objective Vital Signs and I&Os Vital Signs Date Time Temp Pulse Resp B/P B/P Pulse O2 O2 Flow FiO2 Mean Ox Delivery Rate 09/25 0756 98.1 72 20 128/76 09/25 0755 98.1 72 20 128/76 09/25 0633 98.1 72 20 128/76 95 Room Air 09/25 0000 CPAP 09/24 2139 98.5 76 20 120/60 93 09/24 2121 76 120/60 09/24 1627 98.1 67 20 138/76 94 Room Air Intake & Output 09/25 1600 09/25 0800 09/25 0000 09/24 1600 09/24 0800 09/24 0000 Intake Total 4608 418 7366 1000 600 Output Total 360 625 850 625 450 Balance 640 -100 210 375 150 Intake, IV 132 935 3444 1000 100 Intake, Oral 400 300 60 0 500 Number 0 0 1 1 Bowel Movements Output, 40 25 Drainage Output, Urine 320 600 850 625 450 Patient 309 lb 309 lb Weight Physical Exam: General: Alert and oriented x3, no acute distress Cardiac: RRR, s1s2 Pulm: C T A bilaterally ABD: non-tender, non-distended Extremities: MOves all extremities, Neurovascular status remains intact. Bilateral calves soft and non-tender. Surgical site dressing dry. Drain, malachi, holding suction. Thigh compartment soft Assessment/Plan Assessment/Plan POD 1, s/p I&D R superficial wound infection -Continue MALACHI, do not remove until instructed to by Dr. Jones -Continue home meds -Pain: DC dilaudid, change to oxycodone -Activity: OOB, wbat -DVT ppx: Discuss with case specialist and Dr. Jones, for now mechanical, surgical contraindication to pharmacologic due to low platelet count and difficulty with hemostasis intra-op. -Continue vancomycin, await cultures Will discuss with Dr. Jones Core Measures Venous Thromboembolism VTE Risk Factors Surgery No Mechanical VTE Prophylaxis d/t N/A MechProphylax Ordered No VTE Pharm Prophylaxis d/t NA PharmProphylax ordered
[2017-09-25 10:09] LABS: PLATELET COUNT 60 /CUMM (130-400)
[2017-09-25 15:11] VITALS: BP 140/70
[2017-09-25 21:34] VITALS: BP 102/60
[2017-09-26 06:20] VITALS: BP 122/66
--- NOTE | 2017-09-26 07:33 | PN- Orthopedic ---
Subjective Subjective: PT sitting up in bed, pain better controlled now. No N/V. Dneies SOB/CP Was OOB to chair yesterday with PT. Voiding. +BM Objective Vital Signs and I&Os Vital Signs Date Time Temp Pulse Resp B/P B/P Pulse O2 O2 Flow FiO2 Mean Ox Delivery Rate 09/27 619 98.2 68 20 122/66 95 Room Air 09/25 2134 98.2 74 20 102/60 97 Room Air 09/25 2120 98.3 74 20 122/66 09/25 1511 98.3 70 22 140/70 95 09/25 0756 98.1 72 20 128/76 09/25 0755 98.1 72 20 128/76 Intake & Output 09/26 0000 09/25 1600 09/25 0000 09/24 1600 Intake Total 278 315 5378 7923 990 3050 Output Total 956 361 8155 360 625 850 Balance 285 130 400 640 -100 210 Intake, IV 500 332 143 0236 Intake, Oral 408 536 2139 400 300 60 Number 0 0 1 Bowel Movements Output, 15 20 40 25 Drainage Output, Urine 613 187 9219 320 600 850 Patient 324 lb 309 lb Weight Weight Bed scale Measurement Method Physical Exam: gen- NAD resp- clear cardiac- RRR abd- ND, +BS, NT ext- right hip soft with clean dry dressing, DOUG in place with minimal serosang drainage in bulb. Soft caves bilaterally. distal sensory and motor function intact. 2+ PT pulses bilat. Current Medications: Current Medications Sig/Chel Start time Last Medication Dose Route Stop Time Status Admin Acetaminophen 650 MG Q4P PRN 09/24 1615 AC PO Amlodipine Besylate 5 MG DAILY 09/24 1000 AC 09/25 PO 0756 Clonazepam 1 MG BID PRN 09/23 1115 AC PO 09/30 1114 Diazepam 5 MG TID PRN 09/23 1615 AC 09/25 PO 2122 Diphenhydramine HCl 50 MG Q4-6 PRN PRN 09/23 1500 AC IV Docusate Sodium 100 MG BID 09/23 1410 AC 09/25 PO 2121 Furosemide 40 MG DAILY 09/24 1000 AC 09/25 PO 0756 Hydromorphone HCl 4 MG Q4P PRN 09/24 1700 DC 09/25 PO 0500 Hydromorphone HCl 2 MG Q4-6 PRN PRN 09/24 1600 DC 09/24 PO 1643 Insulin Aspart 0 TIDAC 09/24 1700 AC 09/25 SC 1310 Lactated Ringer's 1,000 ML Q13H 09/24 1615 DC 09/25 IV 0147 Melatonin 5 MG AT BEDTIME 09/25 0215 AC 09/25 PO 212 Morphine Sulfate 2 MG Q2 PRN 09/24 1601 AC 09/26 IV 0536 Nicotine 14 MG DAILY 09/23 1115 AC 09/25 TOP 0756 Omeprazole 40 MG BID 09/23 2199 AC 09/25 PO 212 Oxycodone HCl 30 MG Q8P PRN 09/25 0945 AC 09/26 PO 0132 Oxycodone HCl 15 MG Q8P PRN 09/25 0945 AC PO Propranolol HCl 40 MG BID 09/23 2199 AC 09/25 PO 212 Senna 187 MG AT BEDTIME 09/23 2199 AC 09/25 PO 212 Vancomycin HCl 2,000 MG Q12H 09/25 0600 AC 09/26 Sodium Chloride 500 ML IV 0529 Results Last 48 Hours of Labs: Laboratory Tests 09/25 754 Hematology CBC w Diff NO MAN DIFF REQ WBC (4.8 - 10.8 /CUMM) 1.8 L RBC (4.70 - 6.10 /CUMM) 2.92 L Hgb (14.0 - 18.0 G/DL) 8.6 L Hct (42 - 52 %) 25.6 L MCV (80.0 - 94.0 FL) 87.8 MCH (27.0 - 31.0 PG) 29.4 MCHC (33.0 - 37.0 G/DL) 33.5 RDW (11.5 - 14.5 %) 14.7 H Plt Count (130 - 400 /CUMM) 60 L MPV (7.4 - 10.4 FL) 10.3 Gran % (42.2 - 75.2 %) 69.3 Lymphocytes % (20.5 - 51.1 %) 20.2 L Monocytes % (1.7 - 9.3 %) 8.0 Eosinophils % (0 - 5 %) 2.3 Basophils % (0.0 - 2.0 %) 0.2 Absolute Granulocytes (1.4 - 6.5 /CUMM) 1.3 L Absolute Lymphocytes (1.2 - 3.4 /CUMM) 0.4 L Absolute Monocytes (0.10 - 0.60 /CUMM) 0.1 Absolute Eosinophils (0.0 - 0.7 /CUMM) 0 Absolute Basophils (0.0 - 0.2 /CUMM) 0 Recent Imaging Studies: Right hip Cultures- SPEC #: [id number] SARAH: 09/24/17 STATUS: RES RECD: 09/24/[address]: Karen HUBER,[place] SOURCE: TRUNK/O.R. ENTR: 09/24/[address]: Bro HUBER,[place]ris[facility] [place] SPDESC: HIP RIGHT ORDERED: TRUNK OR CULT COMMENT: SWAB OF RIGHT HIP SPACE Procedure Result > GRAM STAIN Final 09/25/17 WHITE BLOOD CELLS FEW GRAM POSITIVE COCCI RARE > TRUNK AREA OR CULTURE Preliminary 09/25/17100 Moderate growth of: STAPH AUREUS ISOLATED Assessment/Plan Assessment/Plan POD 2, s/p I&D R superficial wound infection with Staph Aureus by culture. Initial right BARBARA surgery was done August 29. -Continue DOUG, do not remove until instructed to by Dr. Jones -Continue home meds -Cont current pain management -Activity: OOB, wbat -Physical therapy -DVT ppx: for now mechanical, surgical contraindication to pharmacologic due to low platelet count and difficulty with hemostasis intra-op. -Cont current ABX, may consider PICC prior to DC Will discuss with Dr. Jones Core Measures Venous Thromboembolism VTE Risk Factors Surgery No Mechanical VTE Prophylaxis d/t N/A MechProphylax Ordered No VTE Pharm Prophylaxis d/t NA PharmProphylax ordered No VTE Pharm Prophylaxis d/t NA PharmProphylax ordered
[2017-09-26 11:05] LABS: ABSOLUTE BASOPHIL COUNT 0 /CUMM (0.0-0.2); ABSOLUTE EOSINOPHIL COUNT 0.1 /CUMM (0.0-0.7); ABSOLUTE LYMPH COUNT 0.4 /CUMM (1.2-3.4); ABSOLUTE MONOCYTE COUNT 0.1 /CUMM (0.10-0.60); MEAN PLATELET VOLUME 10.2 FL (7.4-10.4)
[2017-09-26 11:12] LABS: ABSOLUTE GRANULOCYTE CT 2.2 /CUMM (1.4-6.5); BASOPHIL % 0.5 % (0.0-2.0); EOSINOPHIL % 1.9 % (0-5); HEMATOCRIT 28.9 % (42-52); MEAN CORPUSCULAR HGB 29.4 PG (27.0-31.0); MEAN CORPUSCULAR HGB CONC 33.6 G/DL (33.0-37.0); MEAN CORPUSCULAR VOLUME 87.3 FL (80.0-94.0); PLATELET COUNT 79 /CUMM (130-400); RBC DISTRIBUTION WIDTH 14.9 % (11.5-14.5); RED BLOOD CELL CT 3.31 /CUMM (4.70-6.10)
[2017-09-26 11:13] LABS: WHITE BLOOD CELL COUNT 2.9 /CUMM (4.8-10.8)
[2017-09-26 14:56] VITALS: BP 110/70
--- NOTE | 2017-09-26 16:29 | ULTRASOUND REPORT ---
EXAMINATION: US TRIPLEX LOWER EXTREMITY, RIGHT CLINICAL INFORMATION: Calf pain and swelling status post right total hip replacement COMPARISON: None TECHNIQUE: Color-flow triplex imaging with spectral analysis and compression Doppler were performed on the right lower extremity. FINDINGS: The right common femoral vein is compressible and exhibits a normal phasic waveform; this suggests that the iliac veins are widely patent above. Within the proximal thigh, the visualized profunda femoris vein is patent. The examined greater saphenous vein and saphenofemoral junction are normal. Superficial femoral vein is patent in the proximal, mid and distal thigh. Popliteal vein appears normal to the level of the trifurcation. Calf veins are suboptimally visualized due to patient body habitus. No evidence of Johnson's cyst. IMPRESSION: No evidence of deep vein thrombosis in the right lower extremity from the level of the common femoral vein to the tibioperoneal trunk.
[2017-09-26 22:12] VITALS: BP 120/60
[2017-09-27 06:48] VITALS: BP 120/58
--- NOTE | 2017-09-27 08:05 | PN- Orthopedic ---
Subjective Subjective: No acute events overnight, pain steadily getting less. No fever or flulike illness Objective Vital Signs and I&Os Vital Signs Date Time Temp Pulse Resp B/P B/P Pulse O2 O2 Flow FiO2 Mean Ox Delivery Rate 09/27 0648 97.6 62 20 120/58 96 CPAP 09/26 2212 98.7 70 20 120/60 97 Room Air 09/26 2115 82 120/88 09/26 1456 98.3 69 20 110/70 98 09/26 0909 80 142/82 09/26 0908 80 142/82 Intake & Output 09/27 1600 09/27 0809/27 0000 09/26 1600 09/26 0800 09/26 0000 Intake Total 1000 1100 950 900 600 Output Total 262 110 620 615 470 Balance 738 990 330 285 130 Intake, IV 500 500 500 Intake, Oral 500 600 950 400 600 Output, 12 10 20 15 20 Drainage Output, Urine 250 100 600 600 450 Patient 324 lb Weight Weight Bed scale Measurement Method Physical Exam: Well-developed well-nourished no apparent distress. HEENT: Atraumatic, extraocular motion intact Neck: Supple, no lymphadenopathy Respiratory: No respiratory distress Extremities: +1 pitting edema bilateral lower extremities RIGHT lower extremity hip dressing in place, Dressing clean dry and intact DOUG drain in place with minimal serosanguineous drainage No shortening or rotation Hip range of motion is limited and without unexpected pain Neurovascularly intact distally Bilateral calves are supple, nontender. Neuro: Alert and oriented x3 Psych: Mood affect normal, normal memory normal judgment. Skin: Warm and dry, no rash on exposed skin Results Last 48 Hours of Labs: Laboratory Tests 09/26 09/26 0950 0902 Chemistry Sodium (137 - 145 mmol/L) 138 Potassium (3.5 - 5.1 mmol/L) 3.8 Chloride (98 - 107 mmol/L) 103 Carbon Dioxide (22 - 30 mmol/L) 26 Anion Gap (5 - 16) 9 BUN (9 - 20 mg/dL) 14 Creatinine (0.7 - 1.2 mg/dL) 0.6 L Estimated GFR (>60 ml/min) > 60 BUN/Creatinine Ratio (7 - 25 %) 23.3 Hematology CBC w Diff NO MAN DIFF REQ WBC (4.8 - 10.8 /CUMM) 2.9 L RBC (4.70 - 6.10 /CUMM) 3.31 L Hgb (14.0 - 18.0 G/DL) 9.7 L Hct (42 - 52 %) 28.9 L MCV (80.0 - 94.0 FL) 87.3 MCH (27.0 - 31.0 PG) 29.4 MCHC (33.0 - 37.0 G/DL) 33.6 RDW (11.5 - 14.5 %) 14.9 H Plt Count (130 - 400 /CUMM) 79 L MPV (7.4 - 10.4 FL) 10.2 Gran % (42.2 - 75.2 %) 78.0 H Lymphocytes % (20.5 - 51.1 %) 14.4 L Monocytes % (1.7 - 9.3 %) 5.2 Eosinophils % (0 - 5 %) 1.9 Basophils % (0.0 - 2.0 %) 0.5 Absolute Granulocytes (1.4 - 6.5 /CUMM) 2.2 Absolute Lymphocytes (1.2 - 3.4 /CUMM) 0.4 L Absolute Monocytes (0.10 - 0.60 /CUMM) 0.1 Absolute Eosinophils (0.0 - 0.7 /CUMM) 0.1 Absolute Basophils (0.0 - 0.2 /CUMM) 0 Assessment/Plan Assessment/Plan STATUS POST BARBARA on August 29, now POD 3 s/p I&D R superficial wound infection with MRSA Continue DOUG, do not remove until instructed to by Dr. Jones Continue home meds Cont current pain management Activity: OOB, wbat Physical therapy DVT ppx: for now mechanical, surgical contraindication to pharmacologic due to low platelet count and difficulty with hemostasis intra-op. Cont current ABX, consider PICC prior to DC Will discuss with Dr. Jones Core Measures Venous Thromboembolism VTE Risk Factors Surgery No Mechanical VTE Prophylaxis d/t N/A MechProphylax Ordered No VTE Pharm Prophylaxis d/t NA PharmProphylax ordered
--- NOTE | 2017-09-27 09:15 | Surgical Discharge Summary ---
Visit Information Visit Dates Admission Date: 09/23/17 Discharge Date: 09/28/17 History of Present Illness Chief Complaint: Right hip wound infection Medical History Blood Transfusion Hx: No Neurological: NONE EENT: NONE Cardiovascular: hypertension Respiratory: obstructive sleep apnea Gastrointestinal: GERD Hepatic: cirrhosis Renal: NONE Musculoskeletal: chronic back pain, osteoarthritis Psychiatric: anxiety Endocrine: diabetes Blood Disorders: CHRONIC LOW PLATELETS Cancer(s): NONE Other Medical Hx: MORBID OBESITY History of MRSA: Yes History of VRE: No History of CDIFF: No Isolation History: Contact Influenza Vaccine: 03/27/17 Surgical History Pertinent Surgical History: non-contributory Psychosocial History Where Do You Live? Home Who Do You Live With? Family What is Your Primary Language? Bolivian ETOH Use: denies use Review of Systems: see [facility] Hospital Course Course Attending Physician: Jules Jones MD Primary Care Physician: Crispin Crabtree MD Hospital Course: This is a 56-year-old male with history of morbid obesity and diabetes who is approximately 1 month status post primary right total hip arthroplasty secondary to osteoarthritis who required readmission secondary to a superficial right hip wound and cellulitis. He was also found to have mildly low platelets of 50,000 which was monitored and improved. He was placed on vancomycin IV, taken to the OR for a irrigation and debridement of the superficial wound that does not extend through the fascia or into the joint. A DOUG drain was placed and he was kept on vancomycin, cultures grew out MRSA. Patient tolerated procedure well, was able to ambulate well and his postoperative course was uneventful. He was discharged home in stable condition Complications: None Allergies: Coded Allergies: No Known Allergies (08/26/17) Disposition Summary Disposition Principal Diagnosis: Right hip superficial non-excisional irrigation and debridement Pre-Operative Diagnosis: Right hip wound infection Additional Diagnosis: None Discharge Disposition: home health services Discharge Instructions General Discharge Information Code Status: Full Code Patient's Diet: Diabetic Patient's Activity: Activity as tolerated Follow-Up Instructions/Appts: Follow-up with Dr. Jones in 7-10 days, continue antibiotics as directed Medications at Discharge Discharge Medications: Stop taking the following medications: Apixaban (Eliquis) 2.5 MG TABLET ORAL TWICE DAILY Qty = 14 Apixaban (Eliquis) 5 MG TABLET ORAL TWICE DAILY Qty = 28 Morphine Sulfate (Ms Contin) 30 MG TABLET.ER ORAL TWICE DAILY Qty = 6 Amoxicillin/Potassium Clav (Augmentin 875-125 Tablet) 875 MG-125 MG TABLET ORAL TWICE DAILY Qty = 20 Hydromorphone HCl (Dilaudid) 2 MG TABLET ORAL EVERY 4-6 HOURS NEEDED as needed for PAIN Qty = 36 Continue taking these medications: Amlodipine Besylate (Amlodipine Besylate) 5 MG TABLET 1 Tablet ORAL DAILY Comments: Last Taken: 09/01/17 Time: 1054AM Pantoprazole Sodium (Pantoprazole Sodium) 40 MG TABLET.DR 1 Tablet ORAL TWICE DAILY Comments: PRILOSEC GIVEN IN HOSPITAL Last Taken: 09/01/17 Time: 0711AM Propranolol HCl (Propranolol HCl) 40 MG TABLET 1 Tablet ORAL TWICE DAILY Comments: Last Taken: 09/01/17 Time: 1054 Clonazepam (Klonopin) 1 MG TABLET 1 Tablet ORAL DAILY Comments: Last Taken: 09/01/17 Time: 1102AM [GLZXAMBI] MG 1 Tablet ORAL DAILY Instructions: DOSE PER PT IS 10/5MG Comments: NOT GIVEN IN HOSPITAL Liraglutide (Victoza 2-Gianni) 0.6 MG/0.1 ML (18 MG/3 ML) PEN.INJCTR 1.2 Milligram Inject into fatty tissue DAILY Comments: NOT GIVEN IN HOSPITAL Docusate Sodium (Colace) 100 MG CAPSULE 1 Capsule ORAL TWICE DAILY Qty = 14 Instructions: DISCONTINUE USE IF YOU DEVELOP LOOSE STOOL OR DIARRHEA Comments: Last Taken: 09/01/17 Time: 1054AM Polyethylene Glycol 3350 (Miralax) 17 GRAM POWD.PACK 1 Packet ORAL DAILY Qty = 7 Instructions: dissolve in water, DISCONTINUE USE IF YOU DEVELOP LOOSE STOOL OR DIARRHEA Comments: Last Taken: 09/01/17 Time: 1054AM Start taking the following new medications: Oxycodone HCl (Oxycodone HCl) 5 MG TABLET 2-3 Tablet ORAL Q4H as needed for pain Qty = 40 No Refills Doxycycline Monohydrate (Doxycycline Monohydrate) 100 MG CAPSULE 1 Capsule ORAL TWICE DAILY Qty = 20 No Refills
--- NOTE | 2017-09-27 09:17 | Patient Discharge Instructions ---
Discharge Instructions General Discharge Information You were seen/treated for: Right hip superficial non-excisional irrigation and debridement Pre-Operative Diagnosis: Right hip wound infection You had these procedures: See above Watch for these problems: Worsening right hip or thigh pain, redness, swelling, discharge from the wound, fever or flulike illness Call Surgeon to remove: [place] (within 2 weeks), Stitches No bath, but you may shower: Yes Other wound care: Keep clean and dry. Visiting nurse will change dressing. Dressing changes with dry sterile dressing, tegaderm Special Instructions: Take (doxycycline) antibiotics as directed and pain medication as needed Follow-up with infectious disease doctor, Dr. Martine Perales, tomorrow, call to make an appointment Diet Continue normal diet: No Recommended Diet: Diabetic Activity Full Activity/No Limits: No Activity Self Limited: Yes Acute Coronary Syndrome Inclusion Criteria At DC or during hospital stay patient has or had the following: ACS DIAGNOSIS No Discharge Core Measures Meds if any: Prescribed or Continued at Discharge Meds if any: NOT Prescribed or Continued at Discharge Congestive Heart Failure Inclusion Criteria At DC or during hospital stay patient has or had the following: CHF DIAGNOSIS No Discharge Core Measures Meds if any: Prescribed or Continued at Discharge Meds if any: NOT Prescribed or Continued at Discharge Cerebrovascular accident Inclusion Criteria At DC or during hospital stay patient has or had the following: CVA/TIA Diagnosis No Discharge Core Measures Meds if any: Prescribed or Continued at Discharge Meds if any: NOT Prescribed or Continued at Discharge Venous thromboembolism Inclusion Criteria VTE Diagnosis No VTE Type NONE VTE Confirmed by (Test) NONE Discharge Core Measures - Per Current guidelines, there needs to be overlap - treatment for the first 5 days of Warfarin therapy. - If discharged on Warfarin prior to 5 days of - overlap therapy, the patient will need to be - assessed for post discharge needs including - *Post discharge parental anticoagulation - *Warfarin and/or parental anticoagulation education - *Follow up date to check INR post discharge At least 5 days overlap therapy as Inpatient No Meds if any: Prescribed or Continued at Discharge Note: Overlap Therapy is Warfarin and Anticoagulant Meds if any: NOT Prescribed or Continued at Discharge
[2017-09-27 14:24] VITALS: BP 128/85
--- NOTE | 2017-09-27 19:02 | PN- Orthopedic ---
Surgical Brief Attending Note Brief Attending Note: S/P R hip superficial I&D, POD #3 Not having any sig pain. No fevers. On vanco IV cultures +MRSA On exam today, hip looks very good, without drainage or erythema. Drain d/c'd Plan: Will discharge to home tomorrow on oral doxycycline with home nursing care for dressing changes. Will be following up with ID doctor on . No anticoagulation.
[2017-09-27 21:46] VITALS: BP 120/70
[2017-09-28 06:32] VITALS: BP 110/57
--- NOTE | 2017-09-28 07:22 | PN- Orthopedic ---
Subjective Subjective: No acute events overnight, patient without complaints, pain is controlled, no fever or flulike illness Objective Vital Signs and I&Os Vital Signs Date Time Temp Pulse Resp B/P B/P Pulse O2 O2 Flow FiO2 Mean Ox Delivery Rate 09/28 0632 97.8 66 20 110/57 96 04/04 0000 94 CPAP 09/27 2146 98.0 68 20 120/70 94 04/03 1424 97.9 90 20 128/85 93 03 0854 120/58 03 0854 120/58 Intake & Output 09/28 0800 04 0000 09/27 1600 09/27 0800 09/27 0000 09/26 1600 Intake Total 1000 1100 1700 1000 1100 950 Output Total 800 120 700 262 110 620 Balance 588 166 6427 738 990 330 Intake, IV 500 500 150 500 500 Intake, Oral 298 351 3874 500 600 950 Number 1 Bowel Movements Output, 20 12 10 20 Drainage Output, Urine 800 100 700 250 100 600 Physical Exam: Well-developed well-nourished no apparent distress. HEENT: Atraumatic, extraocular motion intact Neck: Supple, no lymphadenopathy Respiratory: No respiratory distress Extremities: +1 pitting edema bilateral lower extremities RIGHT lower extremity hip dressing in place, Dressing clean dry and intact No shortening or rotation Hip range of motion is limited and without unexpected pain Neurovascularly intact distally Bilateral calves are supple, nontender. Neuro: Alert and oriented x3 Psych: Mood affect normal, normal memory normal judgment. Skin: Warm and dry, no rash on exposed skin Assessment/Plan Assessment/Plan STATUS POST BARBARA on August 29, now POD 4 s/p I&D R superficial wound infection with MRSA DC home today with [facility] services for dressing changes Doxycycline 100 mg by mouth twice a day upon discharge home times one week Follow-up with infectious disease Dr. Martine Perales tomorrow, discussed with patient Follow-up with Dr. Jones on October 10, he has an appointment Continue home meds Cont current pain management Activity: OOB, wbat Physical therapy Core Measures Venous Thromboembolism VTE Risk Factors Surgery No Mechanical VTE Prophylaxis d/t N/A MechProphylax Ordered No VTE Pharm Prophylaxis d/t NA PharmProphylax ordered
[2017-09-28] MEDS ORDERED: DOXYCYCLINE MO100 M2 PO (07:30)
[2017-09-28] MEDS ORDERED: OXYCODONE HCL5 M1 PO (07:30)
[2017-09-28 08:05] LABS: ABSOLUTE BASOPHIL COUNT 0 /CUMM (0.0-0.2); ABSOLUTE EOSINOPHIL COUNT 0 /CUMM (0.0-0.7); ABSOLUTE MONOCYTE COUNT 0.1 /CUMM (0.10-0.60); BASOPHIL % 0.4 % (0.0-2.0)
[2017-09-28 08:21] VITALS: BP 110/57
[2017-09-28 08:39] LABS: ABSOLUTE GRANULOCYTE CT 0.7 /CUMM (1.4-6.5); ABSOLUTE LYMPH COUNT 0.2 /CUMM (1.2-3.4); GRANULOCYTE % 67.9 % (42.2-75.2); HEMATOCRIT 24.9 % (42-52); MEAN CORPUSCULAR HGB 28.6 PG (27.0-31.0); MEAN CORPUSCULAR HGB CONC 32.7 G/DL (33.0-37.0); MEAN CORPUSCULAR VOLUME 87.5 FL (80.0-94.0); MEAN PLATELET VOLUME 10.1 FL (7.4-10.4); PLATELET COUNT 62 /CUMM (130-400); RBC DISTRIBUTION WIDTH 14.7 % (11.5-14.5); RED BLOOD CELL CT 2.84 /CUMM (4.70-6.10)
[2017-09-28 09:24] LABS: WHITE BLOOD CELL COUNT 1.3 /CUMM (4.8-10.8)
== END 2017-09-28 15:30 | disposition home health service (06) | DRG 863 ==
LOC: UNDOADMIN 03:21 → SDA 03:21 → 2NA 10:09 → ENTRNSPT 09-24 15:41 → EDTRNSPT 09-24 15:48 → EDTRNSPTSTS 09-24 15:48 → CMPTRNSPT 09-24 16:06 → ENPENDDIS 09-28 07:45 → ENTRNSPT 09-28 15:10 → CMPTRNSPT 09-28 15:26 → 2NA 09-28 15:30
PROVIDERS: Nurse Practitioner; Physician Assistant; Physician Assistant Surgical
PROC: 0J9M00Z Drainage of Left Upper Leg Subcutaneous Tissue and Fascia with Drainage Device, Open Approach (ICD-10-PCS; principal; 2017-09-24)
DX: T81.4XXA Infection following a procedure, initial encounter (principal); D69.6 Thrombocytopenia, unspecified; E11.8 Type 2 diabetes mellitus with unspecified complications; E66.01 Morbid (severe) obesity due to excess calories; Z68.41 Body mass index [BMI] 40.0-44.9, adult; B95.61 Methicillin susceptible Staphylococcus aureus infection as the cause of diseases classified elsewhere; Y83.4 Other reconstructive surgery as the cause of abnormal reaction of the patient, or of later complication, without mention of misadventure at the time of the procedure; Z79.84 Long term (current) use of oral hypoglycemic drugs; M16.11 Unilateral primary osteoarthritis, right hip; K21.9 Gastro-esophageal reflux disease without esophagitis; K74.60 Unspecified cirrhosis of liver; G47.33 Obstructive sleep apnea (adult) (pediatric); F17.200 Nicotine dependence, unspecified, uncomplicated; Z79.01 Long term (current) use of anticoagulants; M54.9 Dorsalgia, unspecified; F41.9 Anxiety disorder, unspecified; I10 Essential (primary) hypertension
CPT/HCPCS: 2NAP; 87070; 87075; 87184; 36415; 36592; 82436; 87086; 87147; 93005; 93010; 97110-GO; 97112-GO; 97116-GO; 97161-GP; J0131; J1815; J2405; J3370; J7040; J7060; J7120